=== PATIENT | male | born 1990 | race Caucasian/White ===

== ENCOUNTER → 2019-04-24 | Outpatient (CLI) | payer MEDICARE ==
[~2019-04-24] MED LIST: AUGM875T27 PO; IBUP80TA PO; NORCOTAB PO; PERI0.126 MT; TUMS500C PO
--- NOTE | 2019-04-24 13:57 | REPVR ---
PROCEDURE INFORMATION: Exam: MR Lumbar Spine Without Contrast. Exam date and time: 04/24/2019 1:05 PM Age: 28 years old Clinical indication: Low back pain TECHNIQUE: Imaging protocol: Multiplanar magnetic resonance images of the lumbar spine without intravenous contrast. COMPARISON: No relevant prior studies available. FINDINGS: Vertebral body heights are intact. Alignment is maintained. No pars defect is identified. The conus is unremarkable in appearance, with its tip at the L1-2 level. There is mild multilevel facet arthrosis, disc space narrowing and marginal osteophyte formation. The visualized abdominal structures appear unremarkable. L1-2: No significant disc displacement. L2-3: No significant disc displacement. L3-4: Minimal bulge without significant neural foraminal narrowing or spinal stenosis. L4-5: Small bulge leading to mild bilateral neural foraminal narrowing without significant spinal stenosis. There is small fluid in the facet joints. L5-S1: Small bulge leading to very mild bilateral neural foraminal narrowing without significant spinal stenosis. If surgery is considered, recommend level confirmation. IMPRESSION: Mild multilevel disc desiccation indicating intervertebral disk degeneration with small disc displacements as described. Electronically signed by: Domenico Harvey On 04/24/2019 13:56:56 PM
== END ==
LOC: M RAD 11:22
PROVIDERS: ATTEND Family Medicine
DX: M51.26 Other intervertebral disc displacement, lumbar region (principal); M51.36 Other intervertebral disc degeneration, lumbar region

== ENCOUNTER 2021-05-02 21:03 | Emergency (ER) | payer MEDICARE ==
[~2021-05-02] VITALS: Ht 180.3 cm; Wt 53.4 kg
[2021-05-02] MEDS ORDERED: BOOSTRIX/ADACEL VACCINE (DIPHTH/PERTUSS/ACELL/TETANUS) 0.5ML SYR IM ONE (22:20)
[2021-05-02] MEDS ORDERED: TETRACAINE 0.5% OPHTH SOLN 4ML OD ONE (22:20)
[2021-05-02] MEDS ORDERED: ERYTHROMYCIN OPHTH OINT OD ONE (22:45)
[2021-05-02 22:51] VITALS: BP 122/78
[2021-05-02] MEDS ORDERED: ERYTOIN8 OD (22:51)
== END 2021-05-02 23:12 | disposition home or self-care (01) ==
LOC: M ED 21:03
DX: T15.01XA Foreign body in cornea, right eye, initial encounter (principal); W31.89XA Contact with other specified machinery, initial encounter; Y92.9 Unspecified place or not applicable; Y93.9 Activity, unspecified; Y99.9 Unspecified external cause status; Z88.8 Allergy status to other drugs, medicaments and biological substances; Z79.899 Other long term (current) drug therapy